=== PATIENT | female | born 1940 | race Caucasian/White ===

== ENCOUNTER 2016-11-30 20:20 | Emergency (ER) | payer OTHER, MEDICARE ==
[~2016-11-30] VITALS: Ht 171.4 cm; Wt 73.9 kg
[~2016-11-30 20:20] MED LIST: ATIVAN0.5 MG PO; ATORVASTATIN CA10 MG PO; HYDRODIURIL 2525 MG PO; LOSARTAN POTASS50 MG PO; SERTRALINE HYDR50 MG PO; VITAMIN D31000 IU PO
[2016-11-30] MEDS ORDERED: TRIAMCINOLONE A15 G2 TOP ×2 (21:42→22:01)
--- NOTE | 2016-11-30 21:42 | ED SKIN/ALLERGY COMPLAINT ---
History of Present Illness General Chief Complaint: Skin Rash/ Abcess Stated Complaint: WEAKNESS, RASH TO NECK AND LEFT BUTTOCKS Source: patient Exam Limitations: no limitations Vital Signs & Intake/Output Vital Signs & Intake/Output Vital Signs Date Time Temp Pulse Resp B/P B/P Pulse O2 O2 Flow FiO2 Mean Ox Delivery Rate 11/30 2204 98.7 80 18 148/80 95 Room Air 11/30 2038 98.3 84 20 158/82 97 Room Air Allergies Coded Allergies: codeine (Mild, NAUSEA 11/30/16) Uncoded Allergies: POLLEN (Severe, 08/19/11) TREES (Severe, 08/19/11) Reconcile Medications Atorvastatin Calcium (Lipitor) 10 MG TAB 1 TAB PO DAILY CHOLESTEROL (Reported ) Cholecalciferol (Vitamin D3) 1,000 IU TAB 1 TAB PO DAILY SUPPLEMENT (Reported ) Hydrochlorothiazide (Hydrodiuril 25 MG Tab) 25 MG TAB 1 TAB PO DAILY WATER PILL (Reported) Lorazepam (Ativan) 0.5 MG TAB 1 TAB PO TID PRN ANXIETY Losartan Potassium 50 MG TAB 1 TAB PO DAILY HEART (Reported) SERTRALINE HCL (Sertraline Hydrochloride) 50 MG TAB 1 TAB PO DAILY ANXIETY ( Reported) Triamcinolone Acetonide 0.5 % CREAM..G. 1 MAYNOR TOP BID RASH apply to affected area(s) Triamcinolone Acetonide 0.5 % CREAM..G. 1 MAYNOR TOP BID RASH apply to affected area(s) Triage Note: TRIAGE: PT TO ER C/C WEAKNESS, RASH TO NECK AND L BUTTOCKS. STATES "I FEEL LIKE THERE'S AN INFECTION". ONSET OF RASH ABOUT A WEEK AGO. SAW BLESSING UGALDE, WAS ADVISED TO START PREDNISONE BUT PATIENT REFUSED SHE HAS HAD FAST PULSE RATE LATELY. INSTEAD WAS GIVEN KETOCONAZOLE CREAM. STATES THEY ALSO DID A LYME TITER (WHICH WAS NEGATIVE). Triage Nurses Notes Reviewed? yes Onset: Abrupt Duration: day(s):, constant Timing: recent history Severity: moderate, severe No Modifying Factors: none HPI: 76-year-old female comes into the emergency room for further evaluation of rash to her left proximal region. Patient reports that she's had some general malaise and fatigue. Some intermittent joint pain. She reports that the rash has been there for a few days. She was seen by nurse practitioner and started on a topical antifungal cream. There has been improvement in the rash which she was not sure if it was related to the other symptoms that she was experiencing. She reports that she recently decreased her blood pressure medication per request of her doctor. She also decrease her Zoloft from 75 mg back the 50 mg that she was on. (ANTHONY DUONG) Past History Travel History Traveled to [place] past 21 day No Medical History Any Pertinent Medical History? see below for history Neurological: NONE EENT: NONE Cardiovascular: hypertension, hyperlipidemia, "FAST PULSE" Respiratory: NONE Gastrointestinal: NONE Hepatic: NONE Renal: NONE Musculoskeletal: OSTEOPENIA FEMUR FX L ARM FX Psychiatric: anxiety Endocrine: NONE Blood Disorders: NONE Cancer(s): NONE [employer]/Reproductive: NONE Pneumonia Vaccine: 04/12/09 Influenza Vaccine: 04/12/10 Surgical History Surgical History: non-contributory Psychosocial History Who do you live with Spouse What is your primary language Kinyarwanda Tobacco Use: Never used ETOH Use: denies use Illicit Drug Use: denies illicit drug use Family History Hx Contributory? No (ANTHONY DUONG) Review of Systems Review of Systems Constitutional: Reports: see HPI. EENTM: Reports: no symptoms. Respiratory: Reports: no symptoms. Cardiovascular: Reports: no symptoms. GI: Reports: no symptoms. Genitourinary: Reports: no symptoms. Musculoskeletal: Reports: no symptoms. Skin: Reports: see HPI. Neurological/Psychological: Reports: no symptoms. Hematologic/Endocrine: Reports: no symptoms. Immunologic/Allergic: Reports: no symptoms. All Other Systems: Reviewed and Negative (ANTHONY DUONG) Physical Exam Physical Exam General Appearance: well developed/nourished, mild distress Head: atraumatic Eyes: Bilateral: normal appearance. Ears, Nose, Throat: normal ENT inspection, hearing grossly normal Neck: normal inspection Respiratory: no respiratory distress Cardiovascular: regular rate/rhythm Back: normal inspection Extremities: normal inspection, normal range of motion, no edema Neurologic/Psych: awake, alert, oriented x 3, normal mood/affect Skin: intact, rash Skin Problem Character: large red patch left gluteus, no well demarcated borders with scattered papules on periphery, no warmth, not beefy red, Lymphatic: no anterior cervical angel (ANTHONY DUONG) Progress Differential Diagnosis: abscess/cellulitis, allergic reaction, contact dermatitis, lyme disease, meningitis/sepsis, urticaria, candidiasis, Plan of Care: Patient clinically looks well. Patient is nontoxic-appearing. Patient had a recent evaluation for her fatigue and weakness by her primary care doctor within normal workup. She had outpatient blood work done. The rash appears likely to be more fungal. Apparently it was a beefy red color a few days ago and has improved in color since a topical antifungal. It does not appear to be a cellulitis at this time. No evidence of Lyme disease. Patient has adjusted her medications in regards to decreasing her antidepressant and she was recently decreased on her blood pressure medication. These medication changes potentially explain her fatigue and weakness. (RENNY YEH,ANTHONY) Departure Departure Disposition: HOME OR SELF CARE Condition: Stable Clinical Impression Primary Impression: Rash and nonspecific skin eruption Referrals: ELÍAS GARDINER MD (PCP/Family) Additional Instructions: Use triamcinolone cream as prescribed. Continue using topical antifungal cream. Follow-up with your primary care doctor. Please go over all results of today's visit with your primary care doctor. Contact your primary care doctor to let them know you were here in the emergency room. There may be nonspecific findings which may not be related to your visit today here in the emergency room but may require further evaluation and chronic monitoring by your primary care doctor. If you had a laceration today the chance of foreign body always remains. You should follow-up with your primary care doctor for recheck in 3-5 days for a wound check. If you had an x-ray done there is a chance that a fracture could have been missed on initial read and you should follow-up with your primary care doctor for repeat x-rays if symptoms persist. If your blood pressure was elevated here in the emergency room please have rechecked by her primary care doctor within the next 48 hours by your primary care doctor. If you were prescribed a narcotic here in the emergency room or any type of controlled substances you're not allowed to drive while taking this medication or operate any type of heavy machinery. Narcotics can make you feel lightheaded dizziness nausea and can cause constipation. You may need to pickle cutter a stool softener. Thank you for choosing [facility] emergency room. Please return to the emergency room immediately if you have any other concerns worsening of symptoms. Departure Forms: Customer Survey General Discharge Information Prescriptions: Current Visit Scripts Triamcinolone Acetonide 1 MAYNOR TOP BID #45 GM apply to affected area(s) Triamcinolone Acetonide 1 MAYNOR TOP BID #45 GM apply to affected area(s) (ANTHONY DUONG) PA/COMPLAINT INSPECTOR Co-Sign Statement Statement: ED Attending supervision documentation- [] I saw and evaluated the patient. I have also reviewed all the pertinent lab results and diagnostic results. I agree with the findings and the plan of care as documented in the PA's/COMPLAINT INSPECTOR's documentation. [x] I have reviewed the ED Record and agree with the PA's/COMPLAINT INSPECTOR's documentation. [] Additions or exceptions (if any) to the PAs/COMPLAINT INSPECTOR's note and plan are summarized below: [] (LALITHA ROBLES,GINA Pierre)
[2016-11-30 22:05] VITALS: BP 148/80
== END 2016-11-30 22:07 ==
LOC: ERH 20:20
DX: R21 Rash and other nonspecific skin eruption (principal)